=== PATIENT | male | born 1945 | race Caucasian/White ===

== ENCOUNTER 2017-08-10 18:00 | Inpatient (IN) | payer OTHER, MEDICARE ==
[~2017-08-10] VITALS: Ht 188 cm; Wt 86.5 kg
[2017-08-10 18:01] VITALS: BP 126/85; PULSE 107; RESP 20; TEMP 98.2; O2SAT 99
--- NOTE | 2017-08-10 18:58 | RADRPT ---
EXAM DATE/TIME: 08/10/2017 18:41 [facility] COMPARISON: No previous studies available for comparison. INDICATIONS : Shortness of breath and cough for 3 days. MEDICAL HISTORY : Hypertension. Diabetes mellitus type II. Afib. SURGICAL HISTORY : Defibrillator. ENCOUNTER: Initial ACUITY: 3 days PAIN SCORE: 0/10 LOCATION: Bilateral chest FINDINGS: Mild interstitial prominence of the bases, likely chronic. No lobar consolidation demonstrated. No pl eural effusion or pneumothorax. Heart size upper limits of normal. Cardiac pacer/defibrillator present. CONCLUSION: No pneumonia or other acute cardiopulmonary disease demonstrated. Manoj Delaney MD on August 10, 2017 at 18:55 Board Certified Radiologist. This report was verified electronically.
[2017-08-10 19:04] LABS: AUTOMATED NEUTROPHIL # 4.6 TH/MM3 (1.8-7.7); BASOPHIL % 0.4 % (0.0-2.0); EOSINOPHIL % 0.1 % (0.0-4.0); HEMATOCRIT 38.2 % (39.0-51.0); HEMOGLOBIN 13.9 GM/DL (13.0-17.0); LYMPH % 14.4 % (9.0-44.0); LYMPHOCYTE # 0.9 TH/MM3 (1.0-4.8); MEAN CELL VOLUME 91.4 FL (80.0-100.0); MEAN CORPUSCULAR HEMOGLOBIN 33.3 PG (27.0-34.0); MEAN PLATELET VOLUME 7.6 FL (7.0-11.0); MONO % 12.8 % (0.0-8.0); MONOCYTE # 0.8 TH/MM3 (0-0.9); NEUT % 72.3 % (16.0-70.0); PLATELET COUNT 303 TH/MM3 (150-450); RED BLOOD COUNT 4.18 MIL/MM3 (4.50-5.90); RED CELL DISTRIBUTION WIDTH 12.9 % (11.6-17.2); WHITE BLOOD COUNT 6.3 TH/MM3 (4.0-11.0)
[2017-08-10 19:14] LABS: MEAN CORPUSCULAR HGB CONC 36.5 % (32.0-36.0)
[2017-08-10 19:15] LABS: INTERNATIONAL NORMALIZED RATIO 3.4 RATIO; PROTHROMBIN TIME - PATIENT 34.1 SEC (9.8-11.6)
[2017-08-10 19:24] LABS: ALBUMIN 3.4 GM/DL (3.4-5.0); ALKALINE PHOSPHATASE 90 U/L (45-117); ALT (GPT) 61 U/L (12-78); AST (GOT) 110 U/L (15-37); BICARBONATE 21.6 MEQ/L (21.0-32.0); BLOOD UREA NITROGEN 19 MG/DL (7-18); CALCIUM 8.3 MG/DL (8.5-10.1); CHLORIDE 85 MEQ/L (98-107); CREATININE 1.52 MG/DL (0.60-1.30); GLOMERULAR FILTRATION RATE 46 ML/MIN (>89); GLUCOSE,RANDOM 57 MG/DL (74-106); TOTAL BILIRUBIN ADULT 0.5 MG/DL (0.2-1.0)
[2017-08-10 19:34] LABS: SODIUM (NA) 119 MEQ/L (136-145)
[2017-08-10 19:53] VITALS: BP 124/81; PULSE 109; RESP 22; O2SAT 96
[2017-08-10] MEDS ORDERED: SODIUM CHLOR 0.9% 1000 ML INJ 1,000 ML IV ONE (20:00)
[2017-08-10] MEDS ORDERED: DEXTROSE 25% IN WATER 10 ML SYRINGE IV PUSH ONE (20:00)
[2017-08-10] MEDS ORDERED: GLIP5TAB8 PO (20:03)
[2017-08-10] MEDS ORDERED: WARF-18 PO (20:03)
[2017-08-10] MEDS ORDERED: WARF-23 PO (20:03)
[2017-08-10] MEDS ORDERED: SERT-129 PO (20:16)
[2017-08-10] MEDS ORDERED: CIAL20TA PO (20:16)
[2017-08-10] MEDS ORDERED: ASPI81TA23 PO (20:16)
[2017-08-10] MEDS ORDERED: VITA-142 PO (20:16)
[2017-08-10] MEDS ORDERED: TRAZ100T10 PO (20:16)
[2017-08-10] MEDS ORDERED: METO-393 PO (20:16)
[2017-08-10] MEDS ORDERED: ATOR40TA16 PO (20:16)
[2017-08-10] MEDS ORDERED: OMEP20TA93 PO (20:16)
[2017-08-10] MEDS ORDERED: LEVO500T8 PO (20:16)
--- NOTE | 2017-08-10 20:51 | RADRPT ---
EXAM DATE/TIME: 08/10/2017 20:19 [facility] COMPARISON: No previous studies available for comparison. INDICATIONS : General weakness. RADIATION DOSE: 56.35 CTDIvol (mGy) MEDICAL HISTORY : Hypertension. Cardiovascular disease SURGICAL HISTORY : None. ENCOUNTER: Initial ACUITY: 1 day PAIN SCALE: 0/10 LOCATION: cranial TECHNIQUE: Multiple contiguous axial images were obtained of the head. Using automated exposure control and adj ustment of the mA and/or kV according to patient size, radiation dose was kept as low as reasonably a chievable to obtain optimal diagnostic quality images. DICOM format image data is available electro nically for review and comparison. FINDINGS: CEREBRUM: The ventricles are normal for age. No evidence of midline shift, mass lesion, hemorrhage or acute in farction. No extra-axial fluid collections are seen. POSTERIOR FOSSA: The cerebellum and brainstem are intact. The 4th ventricle is midline. The cerebellopontine angle i s unremarkable. EXTRACRANIAL: There is mucoperiosteal thickening of the paranasal sinuses. Fluid levels are seen in both maxillary air cells. SKULL: The calvaria is intact. No evidence of skull fracture. CONCLUSION: 1. No acute intracranial abnormality. 2. There is acute on chronic-appearing paranasal sinus disease. Manoj Delaney MD on August 10, 2017 at 20:47 Board Certified Radiologist. This report was verified electronically.
--- NOTE | 2017-08-10 21:06 | PD ---
HPI Chief Complaint: Cold / Flu Symptoms Time Seen by Provider: 19:53 Travel History International Travel<30 days: No Contact w/Intl Traveler<30days: No Traveled to known affect area: No History of Present Illness HPI 71-year-old male that presents to the ED for evaluation of abnormal labs. Per patient his been having cold-like symptoms for about a days. Per patient he believes he has the flu and has been in the house with multiple members of the family who have been sick as well. He states that today he went to the [place] to get checked and have blood work and he was called afterwords stating that his sugar as well as his sodium was low and he needed to come to the ED. He denies taking any medications that could exacerbate this condition. Per patient he has not had much of an appetite has not been drinking or eating as much. He does tell me that he continues to take his glipizide. [facility] patient [facility] because he started having a tingling sensation to the bridge of his nose. He started having some numbness to this area as well but this comes and goes. He denies any current fevers. He does have chills and sweats. States that he had fevers initially. Cough is productive. States feeling somewhat weak. Denies any other medical issues at this time. No chest pain. No shortness of breath. No urinary or bowel movement issues. PFSH Past Medical History Hx Anticoagulant Therapy: Yes (warfarin) Atrial Fibrillation: Yes Cardiovascular Problems: Yes High Cholesterol: Yes Diabetes: Yes Patient Takes Glucophage: No GERD: Yes Hypertension: Yes Psychiatric: Yes (MOOD DISORDER) Reproductive: Yes (ERECTILE DYSFUNCTION) Influenza Vaccination: No Past Surgical History Cardiac Surgery: Yes (defibrillator) Social History Alcohol Use: No Tobacco Use: No Substance Use: No Allergies-Medications (Allergen,Severity, Reaction): Coded Allergies: No Known Allergies (Unverified , 08/10/17) Reported Meds & Prescriptions Reported Meds & Active Scripts Active Reported Vitamin E (Vitamin E Acetate) 400 Unit Capsule 1 Cap PO DAILY Aspirin EC (Aspirin) 81 Mg Tabdr 81 Mg PO DAILY Trazodone (Trazodone HCl) 100 Mg Tablet 100 Mg PO HS Cialis (Tadalafil) 20 Mg Tab 10 Mg PO DAILY PRN Do not exceed 1 dose/day. Levofloxacin 500 Mg Tablet 500 Mg PO DAILY Sertraline (Sertraline HCl) 100 Mg Tab 100 Mg PO DAILY Omeprazole 20 Mg Tab 40 Mg PO DAILY Atorvastatin (Atorvastatin Calcium) 40 Mg Tab 40 Mg PO HS Metoprolol Succinate ER 24 HR (Metoprolol Succinate) 200 Mg Tab 200 Mg PO DAILY Warfarin 2.5 Mg Tab 2.5 Mg PO ,RAMIN,SA Warfarin 5 Mg Tab 5 Mg PO GREER,MO,WED,FR Glipizide 5 Mg Tab 7.5 Mg PO BIDAC Take 30 minutes before a meal Review of Systems Except as stated in HPI: all other systems reviewed are Neg Physical Exam Narrative GENERAL: Well-nourished, well-developed patient in no apparent distress. SKIN: Warm and dry. HEAD: Atraumatic. Normocephalic. EYES: Pupils equal and round reactive to light and accommodation. No scleral icterus. No injection or drainage. ENT: No nasal bleeding or discharge. Mucous membranes pink and moist. TMs are clear with no sign of infection or perforation. No mastoid tenderness. Ear canals are intact bilaterally. No lymphadenopathy. Nostril mucosa is red and moist with clear mucus noted. No sinus tenderness to palpation noted. Tonsils are not enlarged or swollen. No ulvua Deviation. Tongue is midline. NECK: Trachea midline. No JVD. No meningeal signs noted CARDIOVASCULAR: Regular rate and rhythm. RESPIRATORY: No accessory muscle use. Clear to auscultation. Breath sounds equal bilaterally. GASTROINTESTINAL: Abdomen soft, non-tender, nondistended. Hepatic and splenic margins not palpable. MUSCULOSKELETAL: Extremities without clubbing, cyanosis, or edema. No obvious deformities. Full range of motion of the upper and lower extremities bilaterally. 2+ pulses bilaterally. NEUROLOGICAL: Awake and alert. No obvious cranial nerve deficits. Motor grossly within normal limits. Five out of 5 muscle strength in the arms and legs. Normal speech. PSYCHIATRIC: Appropriate mood and affect; insight and judgment normal. Data Data Last Documented VS Vital Signs Date Time Temp Pulse Resp B/P (MAP) Pulse Ox O2 Delivery O2 Flow Rate FiO2 08/10/17 19:53 109 22 124/81 (95) 96 Room Air 08/10/17 18:01 98.2 Orders Orders Complete Blood Count With Diff (08/10/17 18:07) Comprehensive Metabolic Panel (08/10/17 18:07) Act Partial Throm Time (Ptt) (08/10/17 18:07) Prothrombin Time / Inr (Pt) (08/10/17 18:07) Magnesium (Mg) (08/10/17 18:07) Electrocardiogram (08/10/17 18:07) Chest, Pa & Lat (08/10/17 18:07) B-Type Natriuretic Peptide (08/10/17 18:07) Influenzae A/B Antigen (08/10/17 18:08) Dextrose 25% In Water Inj (D25w Inj) (08/10/17 20:00) Sodium Chlor 0.9% 1000 Ml Inj (Ns 1000 M (08/10/17 20:00) Ct Brain W/O Iv Contrast(Rout) (08/10/17 ) Admit Order (Ed Use Only) (08/10/17 21:13) Labs Laboratory Tests Test 08/10/17 18:30 White Blood Count 6.3 TH/MM3 Red Blood Count 4.18 MIL/MM3 Hemoglobin 13.9 GM/DL Hematocrit 38.2 % Mean Corpuscular Volume 91.4 FL Mean Corpuscular Hemoglobin 33.3 PG Mean Corpuscular Hemoglobin Concent 36.5 % Red Cell Distribution Width 12.9 % Platelet Count 303 TH/MM3 Mean Platelet Volume 7.6 FL Neutrophils (%) (Auto) 72.3 % Lymphocytes (%) (Auto) 14.4 % Monocytes (%) (Auto) 12.8 % Eosinophils (%) (Auto) 0.1 % Basophils (%) (Auto) 0.4 % Neutrophils # (Auto) 4.6 TH/MM3 Lymphocytes # (Auto) 0.9 TH/MM3 Monocytes # (Auto) 0.8 TH/MM3 Eosinophils # (Auto) 0.0 TH/MM3 Basophils # (Auto) 0.0 TH/MM3 CBC Comment AUTO DIFF Differential Comment AUTO DIFF CONFIRMED Platelet Estimate NORMAL Platelet Morphology Comment NORMAL Prothrombin Time 34.1 SEC Prothromb Time International Ratio 3.4 RATIO Activated Partial Thromboplast Time 47.7 SEC Blood Urea Nitrogen 19 MG/DL Creatinine 1.52 MG/DL Random Glucose 57 MG/DL Total Protein 9.0 GM/DL Albumin 3.4 GM/DL Calcium Level 8.3 MG/DL Magnesium Level 1.0 MG/DL Alkaline Phosphatase 90 U/L Aspartate Amino Transf (AST/SGOT) 110 U/L Alanine Aminotransferase (ALT/SGPT) 61 U/L Total Bilirubin 0.5 MG/DL Sodium Level 119 MEQ/L Potassium Level 3.7 MEQ/L Chloride Level 85 MEQ/L Carbon Dioxide Level 21.6 MEQ/L Anion Gap 12 MEQ/L Estimat Glomerular Filtration Rate 46 ML/MIN B-Type Natriuretic Peptide 287 PG/ML [facility] Medical Decision Making Medical Screen Exam Complete: Yes Emergency Medical Condition: Yes Medical Record Reviewed: Yes Interpretation(s) Influenza is positive Last Impressions Chest X-Ray 08/10/17 1807 Signed Impressions: Service Date/Time: July 18:41 - CONCLUSION: No pneumonia or other acute cardiopulmonary disease demonstrated. Manoj Delaney MD Head CT 08/10/17 0000 Signed Impressions: Service Date/Time: July 20:19 - CONCLUSION: 1. No acute intracranial abnormality. 2. There is acute on chronic-appearing paranasal sinus disease. Manoj Delaney MD CBC & BMP Diagram 08/10/17 18:30 Total Protein 9.0 H, Albumin 3.4, Calcium Level 8.3 L, Magnesium Level 1.0 L, Alkaline Phosphatase 90, Aspartate Amino Transf (AST/SGOT) 110 H, Alanine Aminotransferase (ALT/SGPT) 61, Total Bilirubin 0.5 Differential Diagnosis Electrolyte abnormality versus pneumonia versus hyponatremia versus hypoglycemia versus normal exam versus influenza Narrative Course 71-year-old male that presents to the ED for elevation of abnormal labs. Patient was properly examined and was found to have signs and symptoms consistent appears to be colic symptoms. Labs were done. Labs confirmed hyponatremia and hypoglycemia. Unclear etiology with possible from dehydration secondary to patient's poor appetite secondary to the flu. Patient became positive for influenza. At this time for conditions for admission. I started patient on IV fluids and dextrose as his sugar was 58 out of his appears to be asymptomatic. He does continue to take his glipizide given that he has not eaten in the past couple of days because of his influenza. Patient will be admitted as per my attending recommendations. Dr Em agrees to admission. Diagnosis Primary Impression: Acute hyponatremia Additional Impressions: Hypoglycemia Influenza B Admitting Information Admitting Physician Requests: Admit Fausto Christianson Aug 10, 2017 21:06
[2017-08-10] MEDS ORDERED: SODIUM CHLORIDE 0.9% FLUSH 10 ML FLUSH IV FLUSH PRN (21:15)
[2017-08-10] MEDS ORDERED: NALOXONE HCL 0.4 MG/ML AMP IV PUSH PRN (21:15)
[2017-08-10 21:20] VITALS: BP 138/89; PULSE 81; RESP 20; O2SAT 97
[2017-08-10] MEDS ORDERED: DEXTROSE 50% IN WATER 50 ML VIAL(D50) IV PUSH PRN (21:30)
[2017-08-10] MEDS ORDERED: GLUCAGON 1 MG/ML VIAL IM PRN (21:30)
[2017-08-10] MEDS ORDERED: DEXT 5%-NACL 0.9% 1000 ML INJ 1,000 ML IV SCH (22:00)
[2017-08-10 23:00] VITALS: BP 130/75; PULSE 94; RESP 18; O2SAT 95
--- NOTE | 2017-08-10 23:14 | HHI.HP ---
[facility] Service [facility] Primary Care Physician [facility] Admission Diagnosis acute hyponatremia, hypoglycemia, influenza Diagnoses: Travel History International Travel<30 Days: No Contact w/Intl Traveler <30 Da: No Traveled to Known Affected Are: No Past Family Social History Allergies: Coded Allergies: No Known Allergies (Unverified , 08/10/17) Physical Exam Vital Signs Vital Signs Date Time Temp Pulse Resp B/P (MAP) Pulse Ox O2 Delivery O2 Flow Rate FiO2 08/10/17 21:20 81 20 138/89 (105) 97 Room Air 08/10/17 19:53 109 22 124/81 (95) 96 Room Air 08/10/17 18:01 98.2 107 20 126/85 (99) 99 Room Air Physical Exam GENERAL: This is a well-nourished, well-developed patient, in no apparent distress. SKIN: No rashes, ecchymoses or lesions. Cool and dry. HEAD: Atraumatic. Normocephalic. No temporal or scalp tenderness. EYES: Pupils equal round and reactive. Extraocular motions intact. No scleral icterus. No injection or drainage. ENT: Nose without bleeding, purulent drainage or septal hematoma. Throat without erythema, tonsillar hypertrophy or exudate. Uvula midline. Airway patent. NECK: Trachea midline. No JVD or lymphadenopathy. Supple, nontender, no meningeal signs. CARDIOVASCULAR: Regular rate and rhythm without murmurs, gallops, or rubs. RESPIRATORY: Clear to auscultation. Breath sounds equal bilaterally. No wheezes , rales, or rhonchi. GASTROINTESTINAL: Abdomen soft, non-tender, nondistended. No hepato-splenomegaly , or palpable masses. No guarding. MUSCULOSKELETAL: Extremities without clubbing, cyanosis, or edema. No joint tenderness, effusion, or edema noted. No calf tenderness. Negative Homans sign bilaterally. NEUROLOGICAL: Awake and alert. Cranial nerves II through XII intact. Motor and sensory grossly within normal limits. Five out of 5 muscle strength in all muscle groups. Normal speech. Laboratory Laboratory Tests Test 08/10/17 18:30 White Blood Count 6.3 Red Blood Count 4.18 Hemoglobin 13.9 Hematocrit 38.2 Mean Corpuscular Volume 91.4 Mean Corpuscular Hemoglobin 33.3 Mean Corpuscular Hemoglobin Concent 36.5 Red Cell Distribution Width 12.9 Platelet Count 303 Mean Platelet Volume 7.6 Neutrophils (%) (Auto) 72.3 Lymphocytes (%) (Auto) 14.4 Monocytes (%) (Auto) 12.8 Eosinophils (%) (Auto) 0.1 Basophils (%) (Auto) 0.4 Neutrophils # (Auto) 4.6 Lymphocytes # (Auto) 0.9 Monocytes # (Auto) 0.8 Eosinophils # (Auto) 0.0 Basophils # (Auto) 0.0 CBC Comment AUTO DIFF Differential Comment AUTO DIFF CONFIRMED Platelet Estimate NORMAL Platelet Morphology Comment NORMAL Prothrombin Time 34.1 Prothromb Time International Ratio 3.4 Activated Partial Thromboplast Time 47.7 Blood Urea Nitrogen 19 Creatinine 1.52 Random Glucose 57 Total Protein 9.0 Albumin 3.4 Calcium Level 8.3 Magnesium Level 1.0 Alkaline Phosphatase 90 Aspartate Amino Transf (AST/SGOT) 110 Alanine Aminotransferase (ALT/SGPT) 61 Total Bilirubin 0.5 Sodium Level 119 Potassium Level 3.7 Chloride Level 85 Carbon Dioxide Level 21.6 Anion Gap 12 Estimat Glomerular Filtration Rate 46 B-Type Natriuretic Peptide 287 Date/Time Source Procedure Growth Status 08/10/17 18:30 Nasal Aspirate Influenza Types A,B Antigen ([facility]) - Final Positive For Flu B Antigen Complete Result Diagram: 08/10/17 1830 08/10/17 1830 Caprini VTE Risk Assessment Caprini Risk Assessment Model Point Value = 1 Point Value = 2 Point Value = 3 Point Value = 5 Age 41-60 Minor surgery BMI > 25 kg/m2 Swollen legs Varicose veins or History of unexplained or recurrent spontaneous Oral contraceptives or hormone replacement Sepsis (< 1 month) Serious lung disease, including pneumonia (< 1 month) Abnormal pulmonary function Acute myocardial infarction Congestive heart failure (< 1 month) History of inflammatory bowel disease Medical patient at bed rest Age 61-74 Arthroscopic surgery Major open surgery (> 45 min) Laparoscopic surgery (> 45 min) Malignancy Confined to bed (> 72 hours) Immobilizing plaster cast Central venous access Age >= 75 History of VTE Family history of VTE Factor V Leiden Prothrombin [id number] Lupus anticoagulant Anticardiolipin antibodies Elevated serum homocysteine Heparin-induced thrombocytopenia Other congenital or acquired thrombophilia Stroke (< 1 month) Elective arthroplasty Hip, pelvis, or leg fracture Acute spinal cord injury (< 1 month) Prophylaxis Regimen Total Risk Factor Score Risk Level Prophylaxis Regimen 0-1 Low Early ambulation 2 Moderate Order ONE of the following: *Sequential Compression Device (SCD) *Heparin 5000 units SQ BID 3-4 Higher Order ONE of the following medications: *Heparin 5000 units SQ TID *Enoxaparin/Lovenox 40 mg SQ daily (WT < 150 kg, CrCl > 30 mL/min) *Enoxaparin/Lovenox 30 mg SQ daily (WT < 150 kg, CrCl > 10-29 mL/min) *Enoxaparin/Lovenox 30 mg SQ BID (WT < 150 kg, CrCl > 30 mL/min) AND/OR *Sequential Compression Device (SCD) 5 or more Highest Order ONE of the following medications: *Heparin 5000 units SQ TID (Preferred with Epidurals) *Enoxaparin/Lovenox 40 mg SQ daily (WT < 150 kg, CrCl > 30 mL/min) *Enoxaparin/Lovenox 30 mg SQ daily (WT < 150 kg, CrCl > 10-29 mL/min) *Enoxaparin/Lovenox 30 mg SQ BID (WT < 150 kg, CrCl > 30 mL/min) AND *Sequential Compression Device (SCD) Physician Certification Order for Inpatient Services The services are ordered in accordance with Medicare regulations or non- Medicare payer requirements, as applicable. In the case of services not specified as inpatient-only, they are appropriately provided as inpatient services in accordance with the 2-midnight benchmark. days is the estimated time the patient will need to remain in the hospital, assuming treatment plan goals are met and no additional complications. Lencho Em MD Aug 10, 2017 23:14
[2017-08-11 01:02] VITALS: BP 134/86; PULSE 96; RESP 17; TEMP 98.6; O2SAT 97
--- NOTE | 2017-08-11 03:12 | HHI.HP ---
[facility] Admission Diagnosis acute hyponatremia, hypoglycemia, influenza Diagnoses: Travel History International Travel<30 Days: No Contact w/Intl Traveler <30 Da: No Traveled to Known Affected Are: No History of Present Illness History from patient, ER physician, claudication, and review of medical records. 3 days ago, went to the [place] and they suggested to come down to hospital for check reports of feeling of generalized weakness I think i was dehydrated had flu after coming back from [place] after [place]- had symptoms for about 8 days at that time, had diarrhea, nausea, vomiting, headaches , had fevers then and cough- t shirt was wet when he woke up no longer have n/v/d poor historian somewhat [place] did blood work and called him today to come to hospital was not eating well but continues his meds- takes glipizide Review of Systems Except as stated in HPI: all other systems reviewed are Neg Past Family Social History Past Medical History Hypertension Diabetes Atrial fibrillation Chronic anticoagulation on Coumadin CHFstatus post AICD placement about 11 years ago Fibroids in lung Past Surgical History aicd Allergies: Coded Allergies: No Known Allergies (Unverified , 08/10/17) Family History heart issues from mother's side mom young at 55yo from [place] Social History used to smoke, quit 11yrs ago quit drinking etoh 11yrs ago no drugs Physical Exam Vital Signs Vital Signs Date Time Temp Pulse Resp B/P (MAP) Pulse Ox O2 Delivery O2 Flow Rate FiO2 08/11/17 02:35 Room Air 08/11/17 01:02 98.6 96 17 134/86 (102) 97 08/10/17 23:00 94 18 130/75 (93) 95 Room Air 08/10/17 21:20 81 20 138/89 (105) 97 Room Air 08/10/17 19:53 109 22 124/81 (95) 96 Room Air 08/10/17 18:01 98.2 107 20 126/85 (99) 99 Room Air Physical Exam GENERAL: This is a well-nourished, well-developed patient, in no apparent distress. SKIN: No rashes, ecchymoses or lesions. Cool and dry. HEAD: Atraumatic. Normocephalic. No temporal or scalp tenderness. EYES: Pupils equal round and reactive. Extraocular motions intact. No scleral icterus. No injection or drainage. ENT: Nose without bleeding, purulent drainage or septal hematoma. Airway patent. NECK: Trachea midline. No JVD or lymphadenopathy. Supple, nontender, no meningeal signs. CARDIOVASCULAR: Regular rate and rhythm without murmurs, gallops, or rubs. RESPIRATORY: Clear to auscultation. Breath sounds equal bilaterally. No wheezes , rales, or rhonchi. GASTROINTESTINAL: Abdomen soft, non-tender, nondistended. No guarding. MUSCULOSKELETAL: Extremities without clubbing, cyanosis, or edema. No joint tenderness, effusion, or edema noted. No calf tenderness. NEUROLOGICAL: Awake and alert. Motor and sensory grossly within normal limits. Normal speech. Laboratory Laboratory Tests Test 08/10/17 18:30 White Blood Count 6.3 Red Blood Count 4.18 Hemoglobin 13.9 Hematocrit 38.2 Mean Corpuscular Volume 91.4 Mean Corpuscular Hemoglobin 33.3 Mean Corpuscular Hemoglobin Concent 36.5 Red Cell Distribution Width 12.9 Platelet Count 303 Mean Platelet Volume 7.6 Neutrophils (%) (Auto) 72.3 Lymphocytes (%) (Auto) 14.4 Monocytes (%) (Auto) 12.8 Eosinophils (%) (Auto) 0.1 Basophils (%) (Auto) 0.4 Neutrophils # (Auto) 4.6 Lymphocytes # (Auto) 0.9 Monocytes # (Auto) 0.8 Eosinophils # (Auto) 0.0 Basophils # (Auto) 0.0 CBC Comment AUTO DIFF Differential Comment AUTO DIFF CONFIRMED Platelet Estimate NORMAL Platelet Morphology Comment NORMAL Prothrombin Time 34.1 Prothromb Time International Ratio 3.4 Activated Partial Thromboplast Time 47.7 Blood Urea Nitrogen 19 Creatinine 1.52 Random Glucose 57 Total Protein 9.0 Albumin 3.4 Calcium Level 8.3 Magnesium Level 1.0 Alkaline Phosphatase 90 Aspartate Amino Transf (AST/SGOT) 110 Alanine Aminotransferase (ALT/SGPT) 61 Total Bilirubin 0.5 Sodium Level 119 Potassium Level 3.7 Chloride Level 85 Carbon Dioxide Level 21.6 Anion Gap 12 Estimat Glomerular Filtration Rate 46 B-Type Natriuretic Peptide 287 Date/Time Source Procedure Growth Status 08/10/17 18:30 Nasal Aspirate Influenza Types A,B Antigen ([facility]) - Final Positive For Flu B Antigen Complete Result Diagram: 08/10/17 1830 08/10/17 1830 Imaging Last 48 hours Impressions Chest X-Ray 08/10/17 1807 Signed Impressions: Service Date/Time: July 18:41 - CONCLUSION: No pneumonia or other acute cardiopulmonary disease demonstrated. Manoj Delaney MD Head CT 08/10/17 0000 Signed Impressions: Service Date/Time: July 20:19 - CONCLUSION: 1. No acute intracranial abnormality. 2. There is acute on chronic-appearing paranasal sinus disease. Manoj Delaney MD Capenzo VTE Risk Assessment Caprini VTE Risk Assessment: Mod/High Risk (score >= 2) Caprini Risk Assessment Model Point Value = 1 Point Value = 2 Point Value = 3 Point Value = 5 Age 41-60 Minor surgery BMI > 25 kg/m2 Swollen legs Varicose veins or History of unexplained or recurrent spontaneous Oral contraceptives or hormone replacement Sepsis (< 1 month) Serious lung disease, including pneumonia (< 1 month) Abnormal pulmonary function Acute myocardial infarction Congestive heart failure (< 1 month) History of inflammatory bowel disease Medical patient at bed rest Age 61-74 Arthroscopic surgery Major open surgery (> 45 min) Laparoscopic surgery (> 45 min) Malignancy Confined to bed (> 72 hours) Immobilizing plaster cast Central venous access Age >= 75 History of VTE Family history of VTE Factor V Leiden Prothrombin [id number] Lupus anticoagulant Anticardiolipin antibodies Elevated serum homocysteine Heparin-induced thrombocytopenia Other congenital or acquired thrombophilia Stroke (< 1 month) Elective arthroplasty Hip, pelvis, or leg fracture Acute spinal cord injury (< 1 month) Prophylaxis Regimen Total Risk Factor Score Risk Level Prophylaxis Regimen 0-1 Low Early ambulation 2 Moderate Order ONE of the following: *Sequential Compression Device (SCD) *Heparin 5000 units SQ BID 3-4 Higher Order ONE of the following medications: *Heparin 5000 units SQ TID *Enoxaparin/Lovenox 40 mg SQ daily (WT < 150 kg, CrCl > 30 mL/min) *Enoxaparin/Lovenox 30 mg SQ daily (WT < 150 kg, CrCl > 10-29 mL/min) *Enoxaparin/Lovenox 30 mg SQ BID (WT < 150 kg, CrCl > 30 mL/min) AND/OR *Sequential Compression Device (SCD) 5 or more Highest Order ONE of the following medications: *Heparin 5000 units SQ TID (Preferred with Epidurals) *Enoxaparin/Lovenox 40 mg SQ daily (WT < 150 kg, CrCl > 30 mL/min) *Enoxaparin/Lovenox 30 mg SQ daily (WT < 150 kg, CrCl > 10-29 mL/min) *Enoxaparin/Lovenox 30 mg SQ BID (WT < 150 kg, CrCl > 30 mL/min) AND *Sequential Compression Device (SCD) Assessment and Plan Assessment and Plan Impression: Generalized weakness secondary to hyponatremia/hypoglycemia. Severe hyponatremia. From GI loss. Hypoglycemia. From GI loss due to nausea/vomiting/diarrhea. Patient also had poor oral intake. But he continues to take his glipizide. Recent flulike symptoms with positive flu. Supratherapeutic INR 3.4 Hypertension Diabetes Atrial fibrillation Chronic anticoagulation on Coumadin CHFstatus post AICD placement about 11 years ago Fibroids in lung Plan: Hypoglycemic protocol. D5 normal saline at 42 cc per hour. Watch for fluid overload. Patient has elevated BNP. However clinically he is not in overt heart failure. We'll monitor fingersticks. No sliding scale coverage. Hold oral hypoglycemics. Follow sodium serially. Patient is positive for influenza B. However the window for treatment is . Patient's symptoms of nausea/vomiting/sinus congestion/fever/cough has also resolved. Chest x-ray. Personally reviewed. No evidence of infiltrates/pulmonary edema/ pneumothorax. Head CT. Personally reviewed. No acute infarct/mass/midline shift. Resume home meds. Hold Coumadin. To resume once INR is less than 3. Patient was not taking levofloxacin at home. Prescription was just filled today. Therefore would discontinue it. DVT prophylaxis with heparin. Discussed Condition With Patient, ER physician, nursing staff Physician Certification 2 Midnight Certification Type: Admission for Inpatient Services Order for Inpatient Services The services are ordered in accordance with Medicare regulations or non- Medicare payer requirements, as applicable. In the case of services not specified as inpatient-only, they are appropriately provided as inpatient services in accordance with the 2-midnight benchmark. Estimated LOS (days): 2 days is the estimated time the patient will need to remain in the hospital, assuming treatment plan goals are met and no additional complications. Post-Hospital Plan: Home Lencho Em MD Aug 11, 2017 03:12
[2017-08-11 03:46] VITALS: BP 157/89; PULSE 106; RESP 18; TEMP 98.1; O2SAT 98
[2017-08-11] MEDS: HEPARIN SODIUM - SQ 10,000 UNITS/ML VIAL SQ SCH ×3 (05:30→21:18)
[2017-08-11 07:25] LABS: AUTOMATED NEUTROPHIL # 4.8 TH/MM3 (1.8-7.7); BASOPHIL % 0.3 % (0.0-2.0); EOSINOPHIL % 0.5 % (0.0-4.0); HEMATOCRIT 35.2 % (39.0-51.0); HEMOGLOBIN 12.4 GM/DL (13.0-17.0); LYMPH % 12.3 % (9.0-44.0); LYMPHOCYTE # 0.8 TH/MM3 (1.0-4.8); MEAN CORPUSCULAR HEMOGLOBIN 32.5 PG (27.0-34.0); MEAN CORPUSCULAR HGB CONC 35.3 % (32.0-36.0); MEAN PLATELET VOLUME 7.6 FL (7.0-11.0); MONO % 10.9 % (0.0-8.0); MONOCYTE # 0.7 TH/MM3 (0-0.9); PLATELET COUNT 259 TH/MM3 (150-450); RED BLOOD COUNT 3.83 MIL/MM3 (4.50-5.90); RED CELL DISTRIBUTION WIDTH 12.9 % (11.6-17.2); WHITE BLOOD COUNT 6.3 TH/MM3 (4.0-11.0)
[2017-08-11 08:02] LABS: BICARBONATE 26.4 MEQ/L (21.0-32.0); CALCIUM 7.8 MG/DL (8.5-10.1); CREATININE 1.24 MG/DL (0.60-1.30)
[2017-08-11] MEDS ORDERED: POTASSIUM CHLORIDE 20 MEQ CONTROLLED RELEASE TAB PO ONE (09:00)
[2017-08-11] MEDS: SODIUM CHLORIDE 0.9% FLUSH 10 ML FLUSH IV FLUSH SCH ×2 (09:00→21:00)
[2017-08-11] MEDS: PANTOPRAZOLE SOD 40 MG DELAYED RELEASE TAB PO SCH (10:01)
[2017-08-11] MEDS: ASPIRIN EC 81 MG TABEC PO SCH (10:01)
[2017-08-11] MEDS: METOPROLOL SUCCINATE 50 MG EXTENDED RELEASE TAB PO SCH (10:02)
[2017-08-11] MEDS: SERTRALINE HCL 100 MG TAB PO SCH (10:06)
[2017-08-11 11:36] VITALS: BP 120/67; PULSE 88; RESP 19; TEMP 98.3; O2SAT 97
--- NOTE | 2017-08-11 13:17 | HHI.PR ---
Subjective Remarks This is a pleasant 71 y/o male who was admitted today due to Hyponatremia and Hypoglycemia he is been having nausea and vomit at home, and continue taking his home medicines for Diabetes mellitus now able to eat better, and drink better, was dehydrated, Improved his nausea, vomit and diarrhea. seen in his bedroom and discussed with nurse. as we know he has hypertension, DM II, Atrial Fibrillation , Chronic anticoagulation with Coumadin, CHF status post AICD placement 11 years ago. was heavy smoker until 11 years ago. Objective Vital Signs Date Time Temp Pulse Resp B/P (MAP) Pulse Ox O2 Delivery O2 Flow Rate FiO2 08/11/17 11:36 98.3 88 19 120/67 (84) 97 08/11/17 03:46 98.1 106 18 157/89 (111) 98 08/11/17 02:35 Room Air 08/11/17 01:02 98.6 96 17 134/86 (102) 97 08/10/17 23:00 94 18 130/75 (93) 95 Room Air 08/10/17 21:20 81 20 138/89 (105) 97 Room Air 08/10/17 19:53 109 22 124/81 (95) 96 Room Air 08/10/17 18:01 98.2 107 20 126/85 (99) 99 Room Air I/O 08/10/17 08/10/17 08/10/17 08/11/17 08/11/17 08/11/17 07:00 15:00 23:00 07:00 15:00 23:00 Intake Total 1000 ml 360 ml 1360 ml Output Total 250 ml Balance 1000 ml 110 ml 1360 ml Intake Oral 360 ml 360 ml IV Total 1000 ml 1000 ml Output Urine Total 250 ml # Voids 2 # Bowel Movements 2 Result Diagram: 08/11/17 0652 08/11/17 0652 Imaging Last Impressions Chest X-Ray 08/10/17 1807 Signed Impressions: Service Date/Time: July 18:41 - CONCLUSION: No pneumonia or other acute cardiopulmonary disease demonstrated. Manoj Delaney MD Head CT 08/10/17 0000 Signed Impressions: Service Date/Time: July 20:19 - CONCLUSION: 1. No acute intracranial abnormality. 2. There is acute on chronic-appearing paranasal sinus disease. Manoj Delaney MD Procedures None Other Results Laboratory Tests Test 08/10/17 18:30 08/11/17 06:52 Platelet Estimate NORMAL Platelet Morphology Comment NORMAL Prothrombin Time 34.1 SEC Prothromb Time International Ratio 3.4 RATIO Activated Partial Thromboplast Time 47.7 SEC Blood Urea Nitrogen 19 MG/DL 17 MG/DL Creatinine 1.52 MG/DL 1.24 MG/DL Random Glucose 57 MG/DL 129 MG/DL Total Protein 9.0 GM/DL Albumin 3.4 GM/DL Calcium Level 8.3 MG/DL 7.8 MG/DL Magnesium Level 1.0 MG/DL Alkaline Phosphatase 90 U/L Aspartate Amino Transf (AST/SGOT) 110 U/L Alanine Aminotransferase (ALT/SGPT) 61 U/L Total Bilirubin 0.5 MG/DL Sodium Level 119 MEQ/L 126 MEQ/L Potassium Level 3.7 MEQ/L 3.4 MEQ/L Chloride Level 85 MEQ/L 93 MEQ/L Carbon Dioxide Level 21.6 MEQ/L 26.4 MEQ/L B-Type Natriuretic Peptide 287 PG/ML White Blood Count 6.3 TH/MM3 Red Blood Count 3.83 MIL/MM3 Hemoglobin 12.4 GM/DL Hematocrit 35.2 % Mean Corpuscular Volume 92.0 FL Mean Corpuscular Hemoglobin 32.5 PG Mean Corpuscular Hemoglobin Concent 35.3 % Red Cell Distribution Width 12.9 % Platelet Count 259 TH/MM3 Mean Platelet Volume 7.6 FL Neutrophils (%) (Auto) 76.0 % Lymphocytes (%) (Auto) 12.3 % Monocytes (%) (Auto) 10.9 % Eosinophils (%) (Auto) 0.5 % Basophils (%) (Auto) 0.3 % Neutrophils # (Auto) 4.8 TH/MM3 Lymphocytes # (Auto) 0.8 TH/MM3 Monocytes # (Auto) 0.7 TH/MM3 Eosinophils # (Auto) 0.0 TH/MM3 Basophils # (Auto) 0.0 TH/MM3 CBC Comment DIFF FINAL Differential Comment Anion Gap 7 MEQ/L Estimat Glomerular Filtration Rate 58 ML/MIN Objective Remarks GENERAL: Well developed patient in no acute distress. SKIN: No rashes, ecchymoses or lesions. Cool and dry. HEAD: Atraumatic. Normocephalic. No temporal or scalp tenderness. EYES: Pupils equal round and reactive. Extraocular motions intact. No scleral icterus. No injection or drainage. ENT: Nose without bleeding, purulent drainage or septal hematoma. Airway patent. NECK: Trachea midline. No JVD or lymphadenopathy. Supple, nontender, no meningeal signs. CARDIOVASCULAR: Regular rate and rhythm without murmurs, gallops, or rubs. RESPIRATORY: Clear to auscultation. Breath sounds equal bilaterally. No wheezes , rales, or rhonchi. GASTROINTESTINAL: Abdomen soft, non-tender, nondistended. No guarding. MUSCULOSKELETAL: Extremities without clubbing, cyanosis, or edema. No joint tenderness, effusion, or edema noted. No calf tenderness. NEUROLOGICAL: Awake and alert. Motor and sensory grossly within normal limits. Normal speech. Medications and IVs Current Medications Medications (Trade) Dose Ordered Sig/Luz Route Start Time Stop Time Status Last Admin (NS Flush) 2 ml UNSCH PRN IV FLUSH 08/10/17 21:15 (NS Flush) 2 ml BID IV FLUSH 08/11/17 09:00 (Narcan Inj) 0.4 mg UNSCH PRN IV PUSH 08/10/17 21:15 (D50w (Vial) Inj) 50 ml UNSCH PRN IV PUSH 08/10/17 21:30 08/11/17 03:41 (Glucagon Inj) 1 mg STAT PRN IM 08/10/17 21:30 Dextrose/Sodium Chloride 1,000 ml @ 42 mls/hr [id number] IV 08/10/17 22:00 08/10/17 21:39 (Ecotrin Ec) 81 mg DAILY PO 08/11/17 09:00 08/11/17 10:01 (Lipitor) 40 mg HS PO 08/11/17 21:00 (Zoloft) 100 mg DAILY PO 08/11/17 09:00 08/11/17 10:06 (Toprol Xl) 200 mg DAILY PO 08/11/17 09:00 08/11/17 10:02 (Protonix) 40 mg DAILY PO 08/11/17 09:00 08/11/17 10:01 (Desyrel) 100 mg HS PO 08/11/17 21:00 (Heparin Inj) 5,000 units Q8HR SQ 08/11/17 06:00 A/P Assessment and Plan 1. Generalized weakness secondary to hyponatremia/hypoglycemia. Improving. will follow in am tomorrow his Electrolytes and PT and INR. was positive for influenza B window of treatment . 2. Status post nausea, vomit and diarrhea probable related to Influenza 3. Coagulopathy secondary to Coumadin intake, INR 3.4 and following. 4. Hypertension controlled 5. DM II was Hypoglycemic and on Dextrose now eating better will try to give sodium chloride and following for dehydration and Hyponatremia 6. Atrial Fibrillation on chronic anticoagulation with Coumadin, INR supra- therapeutic 3.4 and following re start once in therapeutic range 7. CHF status post AICD placement about 11 years ago no signs of congestive heart failure 8. Fibroids in Lung 9. Electrolyte derangement replaced and following. Patient was not taking levofloxacin at home. Prescription was just filled today. Therefore would discontinue it. DVT prophylaxis with heparin. Discharge Planning Expected by tomorrow. Ismael Guerra MD Aug 11, 2017 13:17
--- NOTE | 2017-08-11 14:16 | EKG ---
Date Performed: 08/10/2017 Time Performed: 18:13:21 PTAGE: 71 years EKG: ATRIAL FIBRILLATION WITH RAPID VENTRICULAR RESPONSE WITH ABERRANT CONDUCTION OR VENTRICULAR PREMATURE COMPLEXES POSSIBLE RIGHT VENTRICULAR CONDUCTION DELAY ABNORMAL RHYTHM ECG NO PREVIOUS TRACING DOCTOR: Yaw Javier Interpretating Date/Time 08/11/2017 14:14:40
[2017-08-11] MEDS: SODIUM CHLOR 0.9% 1000 ML INJ 1,000 ML IV SCH ×3 (14:40→19:04)
[2017-08-11] MEDS: INSULIN NovoLIN REGULAR SUPPLEMENTAL SCALE SQ SCH ×2 (17:00→21:00)
[2017-08-11 20:00] VITALS: BP 124/84; PULSE 91; RESP 17; TEMP 97.6; O2SAT 96
[2017-08-11] MEDS ORDERED: traZODone HCL 100 MG TAB PO SCH (21:00)
[2017-08-11] MEDS ORDERED: ATORVASTATIN 40 MG TAB PO SCH (21:00)
[2017-08-12] VITALS: BP 127/90; PULSE 105; RESP 18; TEMP 97.9; O2SAT 98
[2017-08-12 04:00] VITALS: BP 116/80; PULSE 90; RESP 18; TEMP 98; O2SAT 96
[2017-08-12] MEDS: HEPARIN SODIUM - SQ 10,000 UNITS/ML VIAL SQ SCH (06:00)
[2017-08-12] MEDS ORDERED: WARFARIN SOD 2.5 MG TAB PO SCH (06:00)
[2017-08-12 08:00] VITALS: BP 130/85; PULSE 86; RESP 18; TEMP 98; O2SAT 94
[2017-08-12 08:21] LABS: INTERNATIONAL NORMALIZED RATIO 2.6 RATIO; PROTHROMBIN TIME - PATIENT 26.4 SEC (9.8-11.6)
[2017-08-12 08:38] LABS: CALCIUM 8.1 MG/DL (8.5-10.1); CREATININE 1.21 MG/DL (0.60-1.30); MAGNESIUM 1.1 MG/DL (1.5-2.5); PHOSPHORUS 1.4 MG/DL (2.5-4.9)
[2017-08-12] MEDS: SERTRALINE HCL 100 MG TAB PO SCH (09:49)
[2017-08-12] MEDS: PANTOPRAZOLE SOD 40 MG DELAYED RELEASE TAB PO SCH (09:49)
[2017-08-12] MEDS: METOPROLOL SUCCINATE 50 MG EXTENDED RELEASE TAB PO SCH (09:49)
[2017-08-12] MEDS: ASPIRIN EC 81 MG TABEC PO SCH (09:50)
[2017-08-12] MEDS: INSULIN NovoLIN REGULAR SUPPLEMENTAL SCALE SQ SCH ×2 (09:54→12:52)
[2017-08-12] MEDS: SODIUM CHLORIDE 0.9% FLUSH 10 ML FLUSH IV FLUSH SCH (09:54)
--- NOTE | 2017-08-12 09:54 | HHI.PR ---
Subjective Remarks Patient seen and examined this morning. His vitals are stable and he is afebrile. States he feels tired, has not gotten out of bed. But feels better since being here. Objective Vital Signs Date Time Temp Pulse Resp B/P (MAP) Pulse Ox O2 Delivery O2 Flow Rate FiO2 08/12/17 04:00 98.0 90 18 116/80 (92) 96 08/12/17 00:00 97.9 105 18 127/90 (102) 98 08/11/17 20:00 97.6 91 17 124/84 (97) 96 08/11/17 11:36 98.3 88 19 120/67 (84) 97 I/O 08/11/17 08/11/17 08/11/17 08/12/17 08/12/17 08/12/17 07:00 15:00 23:00 07:00 15:00 23:00 Intake Total 360 ml 1360 ml 100 ml 600 ml Output Total 250 ml 300 ml Balance 110 ml 1060 ml 100 ml 600 ml Intake Oral 360 ml 360 ml 600 ml IV Total 1000 ml 100 ml Output Urine Total 250 ml 300 ml # Voids 2 3 # Bowel Movements 2 Result Diagram: 08/11/17 0652 08/12/17 0745 Imaging Last Impressions Chest X-Ray 08/10/17 1807 Signed Impressions: Service Date/Time: July 18:41 - CONCLUSION: No pneumonia or other acute cardiopulmonary disease demonstrated. Manoj Delaney MD Head CT 08/10/17 0000 Signed Impressions: Service Date/Time: July 20:19 - CONCLUSION: 1. No acute intracranial abnormality. 2. There is acute on chronic-appearing paranasal sinus disease. Manoj Delaney MD Procedures None Objective Remarks GENERAL: sitting in bed, appears comfortable SKIN: Warm and dry. HEAD: Normocephalic. EYES: No scleral icterus. No injection or drainage. NECK: Supple, trachea midline. CARDIOVASCULAR: Regular rate and rhythm without murmurs, gallops, or rubs. RESPIRATORY: Breath sounds equal bilaterally. No accessory muscle use. GASTROINTESTINAL: Abdomen soft, non-tender, nondistended. MUSCULOSKELETAL: No cyanosis, or edema. No calf tenderness. 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 fib, diabetes, CHF, AICD placement, tobacco abuse that is admitted for hyponatremia and hypoglycemia. Hyponatremia's/have hypoglycemia - HypoNa improving - Hypoglycemia improved Influenza B - Flu positive but outside the window of treatment A. fib on anticoagulation - Resumed Coumadin on 08/12: Home regimen is 5 mg on Monday, Monday, Monday, Monday. 2.5 mg on Monday, , Monday. (discussed with Pharmacy) - INR 2.5 - Metoprolol 200 mg daily Hypertension - stable DM - Sliding-scale - glipizide on hold DVT prophy: Supratherapeutic on Coumadin, was getting heparin will stop this PT eval Discharge Planning Clinically improving. CM to assist with d/c needs, PT recommends home with no PT needs Would benefit from home health Anticipate dc tomorrow as long as labs continue to show improvement Kyra Em MD Aug 12, 2017 09:54
[2017-08-12] MEDS ORDERED: PNEUMOCOCCAL POLYVALENT INJ 25 MCG/0.5 ML SYR IM ONE (10:00)
[2017-08-12 12:00] VITALS: BP 120/79; PULSE 72; RESP 18; TEMP 99.3; O2SAT 96
[2017-08-12] MEDS ORDERED: WARFARIN SOD 2.5 MG TAB PO ONE (14:00)
--- NOTE | 2017-08-12 15:40 | HHI.DCPOC ---
Discharge Care Plan Diagnosis: (1) Hypoglycemia Goals to Promote Your Health * To prevent worsening of your condition and complications * To maintain your health at the optimal level Directions to Meet Your Goals Take your medications as prescribed Follow your dietary instruction Follow activity as directed Keep your appointments as scheduled Take your immunizations and boosters as scheduled If your symptoms worsen call your PCP, if no PCP go to Urgent Care Center or Emergency Room Smoking is Dangerous to Your Health. Avoid second hand smoke Call the 24-hour hour crisis hotline for domestic abuse at Kyra Em MD Aug 12, 2017 15:40
--- NOTE | 2017-08-12 15:41 | HHI.FF ---
Face to Face Verification Diagnosis: (1) Hypoglycemia (2) Acute hyponatremia Home Health Nursing Order: Medical education Medication education-adverse effect Nursing assessment with vital signs I have seen patient Star Melgar on 08/12/17. My clinical findings support the need for the requested home health care services because: Med compliance is questionable Impaired cognition/judgement I certify that my clinical findings support that this patient is homebound because: Need for psychosocial assistance Kyra Em MD Aug 12, 2017 15:41
--- NOTE | 2017-08-12 15:45 | HHI.DS ---
Discharge Summary Admission Date Aug 10, 2017 at 21:15 Discharge Date: Aug 12, 2017 Admitting Diagnosis acute hyponatremia, hypoglycemia, influenza Procedures None CBC/BMP: 08/11/17 0652 08/12/17 0745 Significant Findings Laboratory Tests Test 08/10/17 18:30 08/11/17 06:52 08/12/17 07:45 Red Blood Count 4.18 MIL/MM3 (4.50-5.90) 3.83 MIL/MM3 (4.50-5.90) Hematocrit 38.2 % (39.0-51.0) 35.2 % (39.0-51.0) Mean Corpuscular Hemoglobin Concent 36.5 % (32.0-36.0) Neutrophils (%) (Auto) 72.3 % (16.0-70.0) 76.0 % (16.0-70.0) Monocytes (%) (Auto) 12.8 % (0.0-8.0) 10.9 % (0.0-8.0) Lymphocytes # (Auto) 0.9 TH/MM3 (1.0-4.8) 0.8 TH/MM3 (1.0-4.8) Prothrombin Time 34.1 SEC (9.8-11.6) 26.4 SEC (9.8-11.6) Activated Partial Thromboplast Time 47.7 SEC (24.3-30.1) Blood Urea Nitrogen 19 MG/DL (7-18) Creatinine 1.52 MG/DL (0.60-1.30) Random Glucose 57 MG/DL (74-106) 129 MG/DL (74-106) 126 MG/DL (74-106) Total Protein 9.0 GM/DL (6.4-8.2) Calcium Level 8.3 MG/DL (8.5-10.1) 7.8 MG/DL (8.5-10.1) 8.1 MG/DL (8.5-10.1) Magnesium Level 1.0 MG/DL (1.5-2.5) 1.1 MG/DL (1.5-2.5) Aspartate Amino Transf (AST/SGOT) 110 U/L (15-37) Sodium Level 119 MEQ/L (136-145) 126 MEQ/L (136-145) 130 MEQ/L (136-145) Chloride Level 85 MEQ/L (98-107) 93 MEQ/L (98-107) 97 MEQ/L (98-107) Estimat Glomerular Filtration Rate 46 ML/MIN (>89) 58 ML/MIN (>89) 59 ML/MIN (>89) B-Type Natriuretic Peptide 287 PG/ML (0-100) Hemoglobin 12.4 GM/DL (13.0-17.0) Potassium Level 3.4 MEQ/L (3.5-5.1) Phosphorus Level 1.4 MG/DL (2.5-4.9) Imaging Last Impressions Chest X-Ray 08/10/17 1807 Signed Impressions: Service Date/Time: July 18:41 - CONCLUSION: No pneumonia or other acute cardiopulmonary disease demonstrated. Manoj Delaney MD Head CT 08/10/17 0000 Signed Impressions: Service Date/Time: July 20:19 - CONCLUSION: 1. No acute intracranial abnormality. 2. There is acute on chronic-appearing paranasal sinus disease. Manoj Delaney MD PE at Discharge GENERAL: sitting in bed, appears comfortable SKIN: Warm and dry. HEAD: Normocephalic. EYES: No scleral icterus. No injection or drainage. NECK: Supple, trachea midline. CARDIOVASCULAR: Regular rate and rhythm without murmurs, gallops, or rubs. RESPIRATORY: Breath sounds equal bilaterally. No accessory muscle use. GASTROINTESTINAL: Abdomen soft, non-tender, nondistended. MUSCULOSKELETAL: No cyanosis, or edema. No calf tenderness. 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 fib, diabetes, CHF, AICD placement, tobacco abuse that is admitted for hyponatremia and hypoglycemia. His glypizide was held, blood sugars remained stable. Hyponatremia improved. Was found to be influenza + but was outside of the 48 hr window. Initially supertherapuetic on coumadin but then became therapeutic on and his coumadin was resumed. PT eval patient, no PT needs. Home health to asses vitals. Hold glypizide until seen by PCP. Pt Condition on Discharge: Stable Discharge Disposition: Disch w/ Home Health Serv Discharge Instructions DIET: Follow Instructions for: Diabetic Diet Activities you can perform: Weight Bearing as Lora Follow up Referrals: PCP Follow-up - 1 Week Continued Medications: Aspirin DR (Aspirin EC) 81 Mg Tabdr 81 MG PO DAILY, TAB 0 Refills Atorvastatin (Atorvastatin) 40 Mg Tab 40 MG PO HS for Cholesterol Management, #30 TAB 0 Refills Metoprolol Succinate ER 24 HR (Metoprolol Succinate ER 24 HR) 200 Mg Tab 200 MG PO DAILY, #30 TAB 0 Refills Omeprazole (Omeprazole) 20 Mg Tab 40 MG PO DAILY, #30 TAB 0 Refills Sertraline (Sertraline) 100 Mg Tab 100 MG PO DAILY, #30 TAB 0 Refills Tadalafil (Cialis) 20 Mg Tab 10 MG PO DAILY PRN for Erectile Dysfunction, TAB 0 Refills Do not exceed 1 dose/day. Trazodone (Trazodone) 100 Mg Tablet 100 MG PO HS for Control Depression, #30 TAB 0 Refills Vitamin E Acetate (Vitamin E) 400 Unit Capsule 1 CAP PO DAILY Warfarin (Warfarin) 5 Mg Tab 5 MG PO ,,mon, for Blood Clot Prevention, #30 TAB 0 Refills Warfarin (Warfarin) 2.5 Mg Tab 2.5 MG PO ,mon, for Blood Clot Prevention, #30 TAB 0 Refills Discontinued Medications: Glipizide (Glipizide) 5 Mg Tab 7.5 MG PO BIDAC for Blood Sugar Management, #60 TAB 0 Refills Take 30 minutes before a meal Kyra Em MD Aug 12, 2017 15:45
[2017-08-13] MEDS ORDERED: WARFARIN SOD 5 MG TAB PO SCH (06:00)
== END 2017-08-12 16:36 | disposition home health service (06) | DRG 641 ==
LOC: NEPE 18:00 → NEDA 21:15 → NEDH 08-11 01:30 → N05B 08-11 16:08
PROVIDERS: ADMIT Family Medicine; ATTEND Family Medicine
DX: E87.1 Hypo-osmolality and hyponatremia (principal); E86.0 Dehydration; I11.0 Hypertensive heart disease with heart failure; E11.649 Type 2 diabetes mellitus with hypoglycemia without coma; R63.0 Anorexia; I48.91 Unspecified atrial fibrillation; I50.9 Heart failure, unspecified; J10.1 Influenza due to other identified influenza virus with other respiratory manifestations; F39 Unspecified mood [affective] disorder; K21.9 Gastro-esophageal reflux disease without esophagitis; E78.00 Pure hypercholesterolemia, unspecified; N52.9 Male erectile dysfunction, unspecified; R19.7 Diarrhea, unspecified; R79.1 Abnormal coagulation profile; R11.2 Nausea with vomiting, unspecified; Z87.891 Personal history of nicotine dependence; Z95.810 Presence of automatic (implantable) cardiac defibrillator; Z79.01 Long term (current) use of anticoagulants; Z82.49 Family history of ischemic heart disease and other diseases of the circulatory system; Z23 Encounter for immunization
CPT/HCPCS: 70450; 71046; 80048; 80053; 82948; 83735; 83880; 84100; 85025; 85610; 85730; 87804; 90732; 93005; 96361; 96374; J1644; J7030; J7042